=== PATIENT | male | born 1930 | race Caucasian/White ===

== ENCOUNTER → 2021-02-15 | Outpatient (REF) | payer MEDICARE, BC ==
[~2021-02-15] MED LIST: ALLEGRA60 MG OR; ALLEGRA60 MG PO; ALTACE5 M1 PO; ASPIRIN LOW81 M1 PO; ASTEPRO0.15 %; AZELASTINE HCL0.15 % NAB; B121000 MC1 PO; CALCIUM CHEL1 CAP OR; CALCIUM PO; CELEBREX200 MG PO; CIPROFLOXACN250 MG PO; CIPROFLOXACN500 MG PO; CYCLOBENZAPR5 MG PO; CYMBALTA20 MG PO; DICLOFENAC SODIUM3 % TOP; DIGITEK0.25 MG PO; DOCUSATE SOD100 MG PO; DOXYCYCL HYC100 MG PO; ELIQUIS5 MG PO; FIRST-VANCOM25 MG/ML IV; FISH OIL1000 MG PO; FLEXERIL5 MG PO; FLOMAX0.4 M1 PO; FLUARIX QUADRIV1 IN1 IM; FLUARIX QUADRIV1 IN2 IM; FLUTICASONE50 MCG; GABAPENTIN100 MG PO; KLONOPIN1 MG PO; LOVASTATIN40 MG PO; LUNESTA1 MG PO; LUNESTA2 M2 PO; MAGNESIUM-OX400 MG PO; MELATONIN MAXIM10 MG PO; MELATONIN5 M3 PO; METOPROLOL SUCC25 MG PO; METOPROLOL SUCC50 MG OR; MUCINEX600 MG PO; MULTI VIT PO; NEURONTIN100 MG PO; NIASPAN1000 ER PO; NORCO1 TA1 PO; OCEANIC SELENI50 MCG PO; PREVACID30 M3 PO; PREVNAR 13 IM; PROBIOTI2 PO; PROSTATE 2.4 PO; RESTORIL15 MG PO; RESTORIL7.5 MG PO; SINGULAIR PO; TRAMADOL HCL50 MG PO; TYLENOL 500MG TAB PO; TYLENOL EXTRA STRENG PO; VOLTAREN1%GEL TOP; [UNRECOGNIZED DRUG - OTHER] PO; [UNRECOGNIZED DRUG - OTHER] PO
[2021-02-15 10:25] LABS: URINE BILIRUBIN - DIPSTICK NEGATIVE (NEGATIVE); URINE BLOOD DIPSTICK NEGATIVE (NEGATIVE); URINE COLOR YELLOW; URINE GLUCOSE - DIPSTICK NEGATIVE (NEGATIVE); URINE KETONE NEGATIVE (NEGATIVE); URINE LEUK ESTERASE NEGATIVE (NEGATIVE); URINE NITRITE - DIPSTICK NEGATIVE (Negative); URINE PROTEIN - DIPSTICK NEGATIVE (NEG-TRACE); URINE SPECIFIC GRAVITY 1.025; URINE UROBILINOGEN - DIPSTICK 0.2 E.U./dL (0.2)
== END | disposition home or self-care (01) ==
LOC: LABSPEC 09:50
PROVIDERS: ATTEND Internal Medicine
DX: R35.0 Frequency of micturition (principal)